=== PATIENT | female | born 2000 | race Two or more races ===

== ENCOUNTER 2023-05-29 12:09 | Emergency (ER) | payer BC, OTHER ==
[~2023-05-29] VITALS: Ht 152.4 cm; Wt 75.0 kg
[2023-05-29 13:12] VITALS: BP 147/79; TEMP 98
[2023-05-29 13:13] VITALS: PULSE 102; RESP 18; O2SAT 99
[2023-05-29] MEDS ORDERED: IBUP-1454 PO (13:54)
== END 2023-05-29 13:59 | disposition home or self-care (01) ==
LOC: ER 12:09
DX: S83.8X1A Sprain of other specified parts of right knee, initial encounter (principal); Z79.899 Other long term (current) drug therapy; V49.88XA Car occupant (driver) (passenger) injured in other specified transport accidents, initial encounter; Y93.89 Activity, other specified; Y92.89 Other specified places as the place of occurrence of the external cause; Y99.8 Other external cause status
CPT/HCPCS: 73562